=== PATIENT | male | born 1990 | race American Indian/Alaskan Native ===

== ENCOUNTER 2016-07-24 19:50 | Emergency (ER) | payer OTHER, BC ==
[2016-07-24 20:04] VITALS: BP 149/72
[2016-07-24] MEDS ORDERED: PERCOCET 5/325 PO ONE (20:12)
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
[2016-07-24 21:58] LABS: Basophils % (Auto) 0.4 % (0.0-1.8); Eosinophils % (Auto) 2.4 % (0.0-4.3); Hemoglobin 14.1 gm/dl (11.8-15.2); Mean Corpuscular HGB Conc 34 % (32-34); Mean Corpuscular Hemoglobin 29 pg (28-32); Mean Corpuscular Volume 85 fl (84-94); Platelet Count 174 K/mm3 (140-440); Red Blood Count 4.91 M/mm3 (3.65-5.03); Red Cell Distribution Width 13.8 % (13.2-15.2); White Blood Count 9.1 K/mm3 (4.5-11.0)
[2016-07-24 22:14] LABS: Anion Gap 18 mmol/L; BUN/Creatinine Ratio 13.07; Blood Urea Nitrogen 17 mg/dL (9-20); Calcium 9.3 mg/dL (8.4-10.2); Carbon Dioxide 25 mmol/L (22-30); Chloride 99.6 mmol/L (98-107); Glucose 85 mg/dL (75-100); Potassium 3.9 mmol/L (3.6-5.0); Sodium 139 mmol/L (137-145)
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
[2016-07-24] MEDS ORDERED: NACL 0.9% 1000 ML 1,000 ML IV ONE ×2 (22:36)
== END 2016-07-24 23:36 | disposition left against medical advice (07) ==
LOC: ED 19:50
DX: M54.2 Cervicalgia (principal); M54.9 Dorsalgia, unspecified; R74.8 Abnormal levels of other serum enzymes; V87.7XXA Person injured in collision between other specified motor vehicles (traffic), initial encounter; Y93.89 Activity, other specified; Y99.9 Unspecified external cause status; Y92.410 Unspecified street and highway as the place of occurrence of the external cause
CPT/HCPCS: 36415; 70450; 71010; 72072; 72100; 72125; 72170; 80048; 82550; 85025; 99285; G0480; 80320

== ENCOUNTER 2021-05-22 22:34 | Emergency (ER) | payer BC, OTHER ==
[2021-05-22 22:45] VITALS: BP 133/68
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
--- NOTE | 2021-05-23 00:03 | XRay Report ---
CERVICAL SPINE 2 VIEWS INDICATION: neck injury COMPARISON: None. FINDINGS: No acute, displaced fracture is seen. Alignment is within normal limits. Disc space height is maintained. No significant degenerative changes. CONCLUSION: 1. No acute findings. Signer Name: Dao Tiwari MD Signed: 05/22/2021 11:58 PM Workstation Name: [id number]
--- NOTE | 2021-05-23 00:05 | XRay Report ---
LUMBAR SPINE 2 VIEWS INDICATION: BACK INJURY COMPARISON: None. FINDINGS: No acute, displaced fracture is seen. Alignment is within normal limits. Disc space height is maintained. No significant degenerative changes. CONCLUSION: 1. No acute findings. Signer Name: Dao Tiwari MD Signed: 05/23/2021 12:01 AM Workstation Name: [id number]
[2021-05-23] MEDS ORDERED: CYCLOBENZAPRINE 10 MG TAB PO ONE (01:07)
== END 2021-05-23 01:09 | disposition home or self-care (01) ==
LOC: ED 22:34
DX: M54.2 Cervicalgia (principal); M54.50 Low back pain, unspecified; V49.59XA Passenger injured in collision with other motor vehicles in traffic accident, initial encounter; Y93.89 Activity, other specified; Y92.89 Other specified places as the place of occurrence of the external cause; Y99.8 Other external cause status
CPT/HCPCS: 72040; 72100; 99283